=== PATIENT | female | born 1950 | race Two or more races ===

== ENCOUNTER 2019-01-19 09:28 | Outpatient (CLI) | payer OTHER | END 2019-01-19 09:30 | disposition home or self-care (01) | LOC: SONOGRAMA 09:28 | DX: E04.1 Nontoxic single thyroid nodule (principal) ==

== ENCOUNTER 2023-05-06 07:20 | Outpatient (CLI) | payer OTHER | END 2023-05-06 07:22 | disposition home or self-care (01) | LOC: NUCLEAR 07:20 | PROVIDERS: ATTEND Physical Medicine & Rehabilitation | DX: M06.4 Inflammatory polyarthropathy (principal); S22.060A Wedge compression fracture of T7-T8 vertebra, initial encounter for closed fracture | CPT/HCPCS: 78315; A9503 ==

== ENCOUNTER → 2023-06-30 | Outpatient (CLI) | payer OTHER | END | disposition home or self-care (01) | LOC: RX STUDY 10:42 | PROVIDERS: ATTEND Internal Medicine Gastroenterology | DX: R13.0 Aphagia (principal) ==